=== PATIENT | male | born 1950 | race Hispanic/Latino ===

== ENCOUNTER 2018-11-13 10:46 | Day surgery (SDC) | payer MEDICARE ==
[~2018-11-13 10:46] MED LIST: ANCEF/STERILE WATER 2 GM/20 ML 2 GM/20 ML SYRINGE IV NR; NACL 0.9% 1000 ML 1,000 ML IV SCH
--- NOTE | 2018-11-13 12:31 | Anesthesia Day of Surgery ---
Anesthesia Day of Surgery - Day of Surgery Patient Examined: Yes Patient H&P Reviewed: Yes Patient is NPO: Yes
--- NOTE | 2018-11-13 12:31 | Anesthesia Consultation ---
Anesthesia Consult and Med Hx Date of service: 11/13/18 - Airway Anesthetic Teeth Evaluation: Good ROM Head & Neck: Adequate Mental/Hyoid Distance: Adequate Mallampati Class: Class II Intubation Access Assessment: Good - Pulmonary Exam CTA: Yes - Cardiac Exam Cardiac Exam: RRR - Pre-Operative Health Status ASA Pre-Surgery Classification: ASA2 Proposed Anesthetic Plan: MAC - Cardiovascular System Hx Hypertension: Yes - Other Systems Hx Cancer: Yes (RECTAL CARCINOID )
[2018-11-13] MEDS ORDERED: DIPRIVAN 10 MG/ML IV ONE ×3 (12:35)
[2018-11-13] MEDS ORDERED: ANCEF/STERILE WATER 2 GM/20 ML 2 GM/20 ML SYRINGE IV ONE (12:45)
--- NOTE | 2018-11-13 14:23 | Operative Report ---
PROCEDURE: Colonoscopy with cold snare polypectomy. INDICATIONS: This is a 68-year-old white male with a history of tubular adenoma and nonspecific colitis and who also has a history of a rectal carcinoid that was removed a few years earlier. Last colonoscopy did not show any evidence of rectal carcinoid. At that time, he has also had a history of tubular adenoma. In addition, he had a bout of C. difficile colitis following a back surgery a few years back. He also has a history of a prosthetic heart valve and has been given Ancef as prophylaxis prior to the colonoscopy. DESCRIPTION OF PROCEDURE: The procedure was done after getting informed consent with MAC anesthesia. Initial rectal exam was unremarkable. Instrument was passed through the rectum onto the cecum, which was identified by ileocecal valve and appendiceal orifice. Visualization was fair to good. The scope was retroflexed in the cecum and then on the straight view was withdrawn to the hepatic flexure and reintroduced. No additional pathology was noted in the cecum, ascending colon and transverse colon. There was [id number] diverticular disease noted in the left colon and several small 9-10 mm polyps noted in the rectum, which were flat and possibly hyperplastic, several of these were removed by cold snare polypectomy and the rectum showed some minor internal hemorrhoids on the retroverted view. There was minimal bleeding from the polypectomy sites. ASSESSMENT: History of colon polyps, history of rectal carcinoid. No rectal carcinoid noted this time, multiple rectosigmoid polyps, possibly hyperplastic that were removed by cold snare polypectomy. Mild to moderate diverticular disease involving the left colon and minor internal hemorrhoids. The patient will be asked to avoid aspirin and aspirin-related products and anticoagulants for the next few days. Otherwise, resume previous medications. Encouraged the patient to take fiber supplements and to follow up in the office in 1-2 weeks' time. The procedure was done in the GI lab with assistance of the GI lab team and with the assistance of anesthesia. The GI lab team included ABIMAEL Conroy as well as Kenya felix. JOB# [id number] JAYLENE/PAM
--- NOTE | 2018-11-13 15:00 | Procedure Note ---
Date of procedure: 11/13/18 Pre-op diagnosis: H/O Colon Polyp/H/O Rectal Carcinoid Post-op diagnosis: other (Mutiple,Small Flat (possibly Hypreplastic) Recto- Sigmoid Polyps,removed cold Snare Polypectomy/Mild to Moderate Diverticular disease/Mild to Moderate Internal Hemorrhoid) Procedure: Colonoscopy with Cold Snare Polypectomy Anesthesia: [facility] [place] Surgeon: RILEY HOBSON Estimated blood loss: minimal Pathology: list Specimen disposition: to lab Condition: stable Disposition: same day (Avoid aspirin,NASID and anticoagulants for 2 days, otherwise resume home medication. Encourage fiber supplements after a few days and follow up in 1 to 2 weeks ([phone]).)
[2018-11-13 17:39] VITALS: BP 129/69
== END 2018-11-13 10:47 | disposition home or self-care (01) ==
LOC: GIO 10:46
DX: Z12.11 Encounter for screening for malignant neoplasm of colon (principal); K62.1 Rectal polyp; K63.5 Polyp of colon; K64.8 Other hemorrhoids; K57.30 Diverticulosis of large intestine without perforation or abscess without bleeding; I10 Essential (primary) hypertension; Z79.899 Other long term (current) drug therapy; Z79.82 Long term (current) use of aspirin; Z85.048 Personal history of other malignant neoplasm of rectum, rectosigmoid junction, and anus
CPT/HCPCS: 45385; 82962; 88305; J0690; J2704